=== PATIENT | male | born 1980 | race African-American/Black ===

== ENCOUNTER 2016-04-18 11:33 | Emergency (ER) | payer OTHER ==
[2016-04-18 12:04] VITALS: BP 118/78
[2016-04-18] MEDS ORDERED: IBUPROFEN 800 MG TABLET. PO ONE (13:00)
[2016-04-18] MEDS ORDERED: ALBUTEROL SULFATE 2.5 MG/3 ML NEBU. NEB ONE (13:00)
[2016-04-18 13:14] LABS: OBC FLU VALID
[2016-04-18] MEDS ORDERED: AMOX500C PO (13:18)
[2016-04-18] MEDS ORDERED: PRED20TA PO (13:19)
[2016-04-18] MEDS ORDERED: PROAIR HFA8.5 GM INH (13:19)
--- NOTE | 2016-04-18 13:19 | PHYS DOC ---
Past Medical History Past Medical History: Asthma Past Surgical History: Other Additional Past Surgical Histo: HERNIA REPAIR Alcohol Use: None Drug Use: None Adult General Chief Complaint Chief Complaint: HEADACHE HPI HPI Patient is a 35 year old presents emergency department stating that he developed a sore throat cough congestion with a fever with generalized body aches yesterday. He states that he has frontal maxillary sinus tenderness. He denies any nausea vomiting. He has not taken anything for the pain and discomfort. Review of Systems Review of Systems Constitutional: Fever Eyes: Denies change in visual acuity, redness, or eye pain [] HENT: nasal congestion and sore throat [] Respiratory: cough denies shortness of breath [] Cardiovascular: No additional information not addressed in HPI [] GI: Denies abdominal pain, nausea, vomiting, bloody stools or diarrhea [] : Denies dysuria or hematuria [] Musculoskeletal: Denies back pain or joint pain [] Integument: Denies rash or skin lesions [] Neurologic: Denies headache, focal weakness or sensory changes [] Current Medications Current Medications Current Medications Medications (Trade) Dose Ordered Sig/Devon Start Time Stop Time Status Last Admin Dose Admin Albuterol Sulfate (Ventolin Neb Soln) 2.5 mg 1X ONCE 04/18/16 13:00 04/18/16 13:01 DC 04/18/16 13:02 2.5 MG Ibuprofen (Motrin) 800 mg 1X ONCE 04/18/16 13:00 04/18/16 13:01 DC Allergies Allergies Allergies Coded Allergies Type Severity Reaction Last Updated Verified No Known Drug Allergies 04/18/16 No Physical Exam Physical Exam Constitutional: Well developed, well nourished, no acute distress, non-toxic appearance. [] HENT: Normocephalic, atraumatic, bilateral external ears normal, oropharynx moist, no oral exudates, nose normal. Bilateral tympanic membranes appear to be normal throat with erythematous and postnasal drip noted no exudate noted. Patient with bilateral maxillary and frontal sinus tenderness. Eyes: PERRLA, EOMI, conjunctiva normal, no discharge. [] Neck: Normal range of motion, no tenderness, supple, no stridor. [] Cardiovascular:Heart rate regular rhythm, no murmur [] Lungs & Thorax: Bilateral breath sounds clear to auscultation [] Skin: Warm, dry, no erythema, no rash. [] Back: No tenderness Extremities: No tenderness, no cyanosis, no clubbing, ROM intact, no edema. [] Neurologic: Alert and oriented X 3, normal motor function, normal sensory function, no focal deficits noted. [] Psychologic: Affect normal, judgement normal, mood normal. [] Current Patient Data Vital Signs Vital Signs Date Time Temp Pulse Resp B/P Pulse Ox O2 Delivery O2 Flow Rate FiO2 04/18/16 13:02 98 Room Air 04/18/16 12:04 98.0 59 24 98.0 Lab Values Laboratory Tests Test 04/18/16 12:05 Influenza Type A Antigen Negative (NEGATIVE) Influenza Type B Antigen Negative (NEGATIVE) EKG EKG [] Radiology/Procedures Radiology/Procedures [] Course & Med Decision Making Course & Med Decision Making Pertinent Labs and Imaging studies reviewed. (See chart for details) Fluids as well was negative. Patient will be treated for sinusitis and placed on amoxicillin 1 tablet twice day for the next 10 days. Recommended Tylenol and ibuprofen for fever chills generalized body aches and discomfort. Also recommended Sudafed to help with the sinus pressure as well as Mucinex will also help with promote drainage. Encourage plenty of fluids. Patient be discharged home in stable condition since symptoms to return back to emergency department as been provided. [] Dragon Disclaimer Dragon Disclaimer This electronic medical record was generated, in whole or in part, using a voice recognition dictation system. Departure Departure Impression: Primary Impression: Sinusitis, acute Disposition: 01 HOME, SELF-CARE Condition: STABLE Referrals: DONNA SNYDER MD (PCP) Patient Instructions: Sinusitis, [id number] Additional Instructions: Activity as tolerated. Tylenol or ibuprofen for fever chills or generalized body aches and discomfort. Sudafed as instructed by sales project coordinator [id number]. Mucinex DM as directed by sales project coordinator [id number]. Medication as prescribed. Drink plenty of fluids. Follow-up through primary care physician in one week. Return back to emergency prior signs symptoms become worse. Scripts Albuterol Sulfate (Proair Hfa Inhaler)8.5 Gm [id number] Puff INH PRN Q6HRS PRN SHORTNESS OF BREATH #1 INHALER Prov:LIANET BENNETT NP 04/18/16 Prednisone 20 Mg [id number] Mg PO DAILY #10 TAB Prov:LIANET BENNETT NP 04/18/16 Amoxicillin 500 Mg Capsule1 Cap PO BID #20 CAP Prov:LIANET BENNETT NP 04/18/16 LIANET BENNETT NP Apr 18, 2016 13:19
== END 2016-04-18 13:25 | disposition home or self-care (01) ==
LOC: ER 11:33
DX: J01.00 Acute maxillary sinusitis, unspecified (principal); J01.10 Acute frontal sinusitis, unspecified; J45.909 Unspecified asthma, uncomplicated
CPT/HCPCS: 87804; 94640; 99284-25